=== PATIENT | male | born 1985 | race Caucasian/White ===

== ENCOUNTER → 2017-04-16 | Outpatient (CLI) | payer OTHER ==
--- NOTE | 2017-04-17 12:00 | MRI ---
EXAM DESCRIPTION: Lumbar Spine w/o Contrast CLINICAL HISTORY: M54.32 COMPARISON: MRI lumbar spine without contrast 04/25/2008. TECHNIQUE: Multiplanar, multiple standard sequences, non contrast MRI, lumbar spine. FINDINGS: L5-S1: Disc desiccation. Minimal disc space loss. Posterior midline protrusion 8.5 mm impressing on the thecal sac and abutting the descending right S1 nerve. AP canal diameter 10 mm. Posterior elements are unremarkable. Moderate narrowing of the bilateral foramina. Small Schmorl's node inferior L5 endplate. L4-5: Disc desiccation. Disc space preserved. Posterior midline and left right paracentral disc protrusion 9 mm with 4 mm inferior extrusion. Impressing on the thecal sac and the descending right L5 nerve. AP canal diameter 10 mm. Minimal hypertrophy of the left facet and left flavum ligament. Modic type I endplate reactive changes on the left. Disc-spur complex bulge into the left foramen with moderate narrowing. Mild narrowing of the right foramen. L3-4: No disc desiccation and no bulging. Disc space preserved. Posterior elements are unremarkable. Mild foraminal narrowing but no canal narrowing. L2-3: No disc desiccation or bulging. Disc space preserved. Minimal hypertrophic changes in the right facet and posterior flavum ligament; other posterior elements unremarkable. Canal and foramina are patent. L1-2: Disc space preserved with normal signal in the disc and no bulging. Canal and foramina are patent. Posterior elements unremarkable. Conus terminates at this level. T12-L1: Normal signal in the disc with no bulging. Disc space preserved. Canal and foramina are patent. Posterior elements unremarkable. Paravertebral soft tissues negative. Otherwise normal marrow signal in the remaining vertebral bodies and the posterior elements. Vertebral bodies are not compressed at any level. IMPRESSION: 1. Posterior midline herniation L5-S1 disc impressing on the thecal sac with borderline mild canal stenosis. Abutting the bilateral descending S1 nerves. Correlate for radiculopathy. This has progressed since the prior study. 2. Posterior midline and right paracentral L4-5 disc herniation and possible impingement descending right L5 nerve. Correlate for radiculopathy. Borderline mild canal stenosis. Mild spondylosis to the left with narrowing of the foramen. This has progressed since the prior study. 3. Normal L2-3 disc. Minimal hypertrophic changes in the right facet and right flavum ligament. Electronically signed by: Cole Zhu MD 04/17/2017 11:59 AM CDT
== END ==
LOC: MRI 13:01
PROVIDERS: ATTEND Family Medicine
DX: M51.17 Intervertebral disc disorders with radiculopathy, lumbosacral region (principal)

== ENCOUNTER 2019-09-28 22:38 | Emergency (ER) | payer BC, OTHER ==
[2019-09-28 22:51] VITALS: TEMP 98.5; O2SAT 97
[2019-09-28] MEDS ORDERED: PROMETHAZINE HCL INJ 25 MG/ML VIAL ONE (22:56)
[2019-09-28] MEDS ORDERED: SODIUM CHLORIDE 0.9% 50ML 50 ML ONE (22:56)
[2019-09-28] MEDS: PROMETHAZINE HCL INJ 25 MG in SODIUM CHLORIDE 0.9% 50ML 50 ML IVPB ONE (22:58)
--- NOTE | 2019-09-28 23:56 | ED.PDOC ---
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 One of his working partners had similar symptoms. Flu is prevalent in the community currently. He has already received about 3 L of IV fluids today. He is starting to have some urine output. No chest pain or shortness of breath. He has had some dizziness. He does have significant fatigue. Timing/Duration: other - 4 days Severity: severe Improving Factors: nothing Worsening Factors: nothing Associated Symptoms: diaphoresis, fever/chills, malaise, nausea/vomiting, weakness Allergies/Adverse Reactions: Allergies Penicillins Allergy (Verified 06/19/14 09:48) Home Medications: Ambulatory Orders Cyclobenzaprine HCl [Flexeril] 10 mg PO TID #15 tab 06/19/14 HYDROcodone 5MG/APAP 325MG [[place] 5/325] 1 - 2 tab PO Q4H PRN #10 tab 06/19/14 Naproxen [Naprosyn] 500 mg PO BID #20 tab 06/19/14 Tramadol HCl [Ultram] 50 mg PO QID PRN #10 tab 06/19/14 predniSONE 40 mg PO DAILY #10 tab 06/19/14 Sucralfate Tab [Carafate Tab] 1 gm PO QID #60 tab 09/28/19 Omeprazole 40 mg PO DAILY #30 cap 09/29/19 Ondansetron Odt [Zofran ODT] 4 mg PO Q8HR PRN #5 tab 09/29/19 Oseltamivir Capsule [Tamiflu] 75 mg PO BID 5 Days #10 capsule 09/29/19 Promethazine HCl 25 mg PO Q6H PRN #10 tab 09/29/19 Review of Systems - Review of Systems Constitutional: States: chills, diaphoresis, fever, malaise, weakness EENTM: States: nose congestion, throat pain - mild Respiratory: States: cough Cardiology: States: no symptoms reported Gastrointestinal/Abdominal: States: see HPI Genitourinary: States: no symptoms reported Musculoskeletal: States: see HPI - body aches Skin: States: no symptoms reported Neurological: States: headache Endocrine: States: no symptoms reported All other Systems: No Change from Baseline Past Medical History (General) - Patient Medical History Hx Seizures: No Hx Stroke: No Hx Dementia: No Hx Asthma: No Hx of COPD: No Hx Cardiac Disorders: No Hx Congestive Heart Failure: Yes Hx Pacemaker: No Hx Hypertension: No Hx Thyroid Disease: No Hx Diabetes: No Hx Gastroesophageal Reflux: No Hx Renal Disease: No Hx Cancer: No Hx of HIV: No Hx Hepatitis C: No Hx MRSA: No Surgical History: other - Vaccination History Hx Tetanus, Diphtheria Vaccination: Yes Hx Influenza Vaccination: Yes Hx Pneumococcal Vaccination: No - Social History Hx Tobacco Use: Yes - dips Hx Chewing Tobacco Use: Yes Tins Per Day Chewed: 1 Hx Alcohol Use: Yes Hx Substance Use: No Hx Substance Use Treatment: No Hx Depression: No Hx Physical Abuse: No Hx Emotional Abuse: No Hx Suspected Abuse: No - Female History Patient : No Family Medical History - Family History Father Living Status: Hx Family;Other: PE Physical Exam - Physical Exam General Appearance: Alert, Ill Appearing Eye Exam: bilateral normal Ears, Nose, Throat: hearing grossly normal, nasal congestion Neck: non-tender Respiratory: no respiratory distress, no accessory muscle use Cardiovascular/Chest: regular rate, rhythm, no edema Peripheral Pulses: radial,right: 2+, radial,left: 2+ Gastrointestinal/Abdominal: non tender, soft Rectal Exam: deferred Extremity: normal range of motion, non-tender, no pedal edema, normal capillary refill 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 The patient seems to have corrected the dehydration with the IV fluids he received earlier in the day. Rapid flu testing is negative. White blood cell count is within normal limits. He received some nausea medications as well as acid reducing medications here. He needs to keep himself well hydrated and maintain a bland diet. He'll be written for Zofran and Phenergan for as needed use to control nausea and vomiting. He'll also be written for Carafate and omeprazole to help reduce acid production. ER warnings were given for any significant worsening. maggie navarro [phone] - Results/Orders Results/Orders: 09/28/19 22:55 Abdomen Series [RAD] Stat final read is still pending however I see no evidence of any obstruction or free air. Chest x-ray appears clear. Moderate amount of stool burden. Laboratory Results - last 24 hr 09/28/19 09/28/19 09/28/19 22:55 22:55 22:55 WBC 6.5 RBC 5.27 Hgb 15.2 Hct 44.8 MCV 85.1 MCH 28.8 MCHC 33.9 RDW 13.2 Plt Count 239 MPV 6.9 L Absolute Neuts (auto) 3.20 Absolute Lymphs (auto) 2.70 Absolute Monos (auto) 0.30 Absolute Eos (auto) 0.20 Absolute Basos (auto) 0.10 Neutrophils % 49.3 Lymphocytes % 41.8 Monocytes % 5.2 Eosinophils % 2.9 Basophils % 0.8 Sodium 140 Potassium 3.5 L Chloride 109 Carbon Dioxide 24 Anion Gap 10.5 L BUN 7 Creatinine 1.05 BUN/Creatinine Ratio 6.7 L Random Glucose 122 H Serum Osmolality 278.7 Lactic Acid 1.6 Calcium 8.3 L Magnesium 2.1 Total Bilirubin 0.8 AST 26 ALT 19 Alkaline Phosphatase 55 Serum Total Protein 5.6 L Albumin 3.3 Globulin 2.3 Albumin/Globulin Ratio 1.4 Amylase 18 L Lipase 28 Urine Color Urine Appearance Urine pH Ur Specific [place] Urine Protein Urine Glucose (UA) Urine Ketones Urine Blood Urine Nitrite Urine Bilirubin Urine Urobilinogen Ur Leukocyte Esterase Urine RBC Urine WBC Ur Epithelial Cells Urine Bacteria 09/28/19 23:19 WBC RBC Hgb Hct MCV MCH MCHC RDW Plt Count MPV Absolute Neuts (auto) Absolute Lymphs (auto) Absolute Monos (auto) Absolute Eos (auto) Absolute Basos (auto) Neutrophils % Lymphocytes % Monocytes % Eosinophils % Basophils % Sodium Potassium Chloride Carbon Dioxide Anion Gap BUN Creatinine BUN/Creatinine Ratio Random Glucose Serum Osmolality Lactic Acid Calcium Magnesium Total Bilirubin AST ALT Alkaline Phosphatase Serum Total Protein Albumin Globulin Albumin/Globulin Ratio Amylase Lipase Urine Color Yellow Urine Appearance Clear Urine pH 7.0 Ur Specific [place] 1.015 Urine Protein Negative Urine Glucose (UA) Negative Urine Ketones Negative Urine Blood Trace-intact H Urine Nitrite Negative Urine Bilirubin Negative Urine Urobilinogen 0.2 Ur Leukocyte Esterase Negative Urine RBC 0-1 Urine WBC 0-1 Ur Epithelial Cells 0 Urine Bacteria 0 Departure - Departure Clinical Impression: Viral syndrome, Gastroenteritis Disposition: Discharge to Home or Self Care Condition: Fair Departure Forms: ED Discharge - Pt. Copy, Patient Portal Self Enrollment Diet: bland diet Activity: increase activity as tolerated Referrals: Melida Mora NP [Primary Care Provider] - 1-2 Weeks Prescriptions: Ondansetron Odt [Zofran ODT] 4 mg PO Q8HR PRN #5 tab PRN Reason: Nausea--Moderate Omeprazole 40 mg PO DAILY #30 cap Oseltamivir Capsule [Tamiflu] 75 mg PO BID 5 Days #10 capsule Promethazine HCl 25 mg PO Q6H PRN #10 tab PRN Reason: Vomiting Sucralfate Tab [Carafate Tab] 1 gm PO QID #60 tab Home Medications: Ambulatory Orders Cyclobenzaprine HCl [Flexeril] 10 mg PO TID #15 tab 06/19/14 HYDROcodone 5MG/APAP 325MG [[place] 5/325] 1 - 2 tab PO Q4H PRN #10 tab 06/19/14 Naproxen [Naprosyn] 500 mg PO BID #20 tab 06/19/14 Tramadol HCl [Ultram] 50 mg PO QID PRN #10 tab 06/19/14 predniSONE 40 mg PO DAILY #10 tab 06/19/14 Sucralfate Tab [Carafate Tab] 1 gm PO QID #60 tab 09/28/19 Omeprazole 40 mg PO DAILY #30 cap 09/29/19 Ondansetron Odt [Zofran ODT] 4 mg PO Q8HR PRN #5 tab 09/29/19 Oseltamivir Capsule [Tamiflu] 75 mg PO BID 5 Days #10 capsule 09/29/19 Promethazine HCl 25 mg PO Q6H PRN #10 tab 09/29/19 Additional Instructions: the patient's 33-year-old male presenting with what appears to be a significant viral syndrome consisting of the upper respiratory tract infection along with some nausea and vomiting for the past 4 days. The patient seems to have corrected the dehydration with the IV fluids he received earlier in the day. Rapid flu testing is negative. White blood cell count is within normal limits. He received some nausea medications as well as acid reducing medications here. He needs to keep himself well hydrated and maintain a bland diet. He'll be written for Zofran and Phenergan for as needed use to control nausea and vomiting. He'll also be written for Carafate and omeprazole to help reduce acid production. Maalox or Mylanta can be used additionally as needed for any acute gastritis symptoms. Pepto-Bismol should be avoided as it may worsen constipation with the recent dehydration. ER warnings were given for any significant worsening.
[2019-09-28 23:59] VITALS: BP 123/74
--- NOTE | 2019-09-28 23:59 | RAD ---
Acute abdominal series on 09/28/2019 CLINICAL INDICATION: Nausea and vomiting and diarrhea COMPARISON: Chest x-ray from 07/21/[address] abdomen and pelvis from 04/25/2013 FINDINGS: CHEST: The lungs are clear. Cardiac, hilar and mediastinal contours are within normal limits. Pulmonary vascularity is within normal limits. ABDOMEN: There is no free air. Bowel gas pattern is unremarkable. Mild stool is noted throughout the colon without significant constipation. No abnormal calcification or mass effect is noted. No bony abnormality is noted. IMPRESSION: 1. No acute cardiopulmonary disease. 2. Nonspecific abdomen. Electronically signed by: Chico Stern 09/28/2019 11:57 PM SITE MONITOR
[2019-09-29] MEDS: SUCRALFATE 1 GM/10 ML 1 GM UD PO ONE (00:02)
[2019-09-29] MEDS: ONDANSETRON ODT 8 MG TAB SL ONE (00:02)
[2019-09-29] MEDS: OSELTAMIVIR 75 MG CAP PO ONE (00:02)
[2019-09-29] MEDS: OMEPRAZOLE CAP 20 MG CAP PO ONE (00:06)
== END 2019-09-29 00:14 | disposition home or self-care (01) ==
LOC: ER 22:38
DX: B34.9 Viral infection, unspecified (principal); K52.9 Noninfective gastroenteritis and colitis, unspecified; I50.9 Heart failure, unspecified; Z87.891 Personal history of nicotine dependence; Z79.899 Other long term (current) drug therapy; Z88.0 Allergy status to penicillin
CPT/HCPCS: 36415; 74019; 80053; 81001; 82150; 83605; 83690; 83735; 85025; 87502; A4216; J2550